=== PATIENT | female | born 1950 | race Caucasian/White ===

== ENCOUNTER 2021-06-16 05:28 | Day surgery (SDC) | payer MEDICARE, SELFPAY ==
--- NOTE | 2021-06-12 14:02 | EKG12_ITS ---
Test Reason : OP EKG Blood Pressure : / mmHG Vent. Rate : 074 BPM Atrial Rate : 074 BPM P-R Int : 186 ms QRS Dur : 080 ms QT Int : 372 ms P-R-T Axes : 006 -04 039 degrees QTc Int : 412 ms Normal sinus rhythm Normal ECG Confirmed by AUBREY KHALIL, GAURAV ([id number]), dictionary editor SHEBA KATZ ([id number]) on 06/13/2021 9:15:38 AM Referred By: Timothy Ashton Confirmed By:BRET BURGOS MD
[2021-06-12 16:05] LABS: Hematocrit 38.9 % (37-47); Hemoglobin 13.2 g/dL (12.0-15.0); Mean Corp Hgb Conc 33.9 g/dL (32-36); Mean Corpuscular Hgb 28.4 pg (27.0-32.0); Mean Corpuscular Volume 83.8 fL (81-99); Mean Platelet Vol. 10.2 fl (6.2-12.0); Platelet Count 134 K/mm3 (150-450); RBC Distribution Width CV 14.7 % (11.6-14.6); RBC Distribution Width SD 44.7 fl (35.1-43.9); Red Blood Count 4.64 M/mm3 (4.2-5.4); White Blood Count 6.9 K/mm3 (4.4-11.0)
[2021-06-12 16:21] LABS: International Normalized Ratio 1.1; Prothrombin Time (Protime)PT. 13.6 SECONDS (11.7-14.9)
[2021-06-12 16:22] LABS: Partial Thromboplast Time 35.4 Seconds (24.1-36.2)
[2021-06-12 16:36] LABS: AST(SGOT) 23 U/L (15-37); Alanine Aminotransfer ALT/SGPT 23 U/L (13-56); Albumin, Serum 3.9 g/dL (3.2-5.0); Alkaline Phosphatase 82 U/L (45-117); Bilirubin, Direct 0.19 mg/dL (0.00-0.30); Globulin 4.1 g/dL (2.2-4.2); Magnesium 2.3 mg/dL (1.6-2.6)
[2021-06-12 16:39] LABS: AST(SGOT) 20 U/L (15-37); Alanine Aminotransfer ALT/SGPT 24 U/L (13-56); Alkaline Phosphatase 82 U/L (45-117); Anion Gap 8 (5-15); BUN 16 mg/dL (7-18); BUN/Creat Ratio 21.9 RATIO (10-20); Calcium,Total 9.3 mg/dL (8.5-10.1); Chloride 103 mmol/L (98-107); Creatinine, Serum 0.73 mg/dL (0.55-1.02); EST Glomerular Filtration Rate 84 mL/min (>60); Est Glom Filt Rate - Afr Amer 102 mL/min (>60); Globulin 4.1 g/dL (2.2-4.2); Glucose 77 mg/dL (74-106); Potassium 4.1 mmol/L (3.5-5.1); Protein, Total 8.1 g/dL (6.4-8.2); Sodium Level 138 mmol/L (136-145)
--- NOTE | 2021-06-14 12:38 | PCM.HP.BLA ---
History and Physical Date of Admission: 06/16/21 Surgical History and Physical Ella Tavera, a 71 year old female 2 0 0 0 2, presents for Vaginal Hysterectomy and AP Repair on June 16, 2021 at 10 :00. -- Symptomatic Prolapse -- Pt with bladder prolapse. Sx's started 1 years ago. Main sx's are pressure and dysuria. Increased sx's started after falling at work 07/2020. Pt is and not sexually active. Adds she has rare episodes of having to move around to be able to release her bladder, as she can always go, but not all at one time. Admits she had tried the Estrogen cream as directed, but does not seem to help. Prolapsed bladder x 2 years. Ella claims it started gradually and has been present 1 year prolapse. It occurs all the time. It is located in the vagina. Ella characterizes the quality pressure and urinary retention w/prolapse. Severity is moderate and not improving; MEDICATIONS HISTORY: Current medications prescribed by our practice are: 1. Premarin 0.625 mg/gram cream, Apply once weekly x 2 weeks, then twice weekly there after Patient is also takin. Flonase Allergy Relief 50 mcg/actuation nasal spray,suspension, PRN 2. omeprazole 40 mg capsule,delayed release, 1 PO QD 3. trazodone 50 mg tablet, 1 PO QD 4. cyclobenzaprine 10 mg tablet, 1 PO QD prn ALLERGIES: Streptomycin, Muscle stiffness Infections - chicken pox, mumps, measles, pnuemonia Illnesses - diverticulitis Accidents - None Hospitalizations - see surgery Review of Systems: GENERAL - Denies fever, or chills SKIN - Denies skin changes EYES - Denies visual changes EARS - Denies difficulty hearing NOSE - Denies nasal congestion or bleeding MOUTH - Denies sore throat or difficulty swallowing NECK - Denies pain or swelling RESPIRATORY - Denies shortness of breath or wheezing CARDIOVASCULAR - Denies palpitations or chest pain GASTROINTESTINAL - Denies nausea, vomiting, diarrhea, constipation GENITOURINARY - Denies dysuria, frequency of urination, incontinence of urine MUSCULOSKELETAL - Denies joint or muscle pain NEUROLOGICAL - Denies localized numbness or weakness PSYCHIATRIC - Denies depression or anxiety ENDOCRINE - Denies heat or cold intolerance, weight loss or gain HEMATO-IMMUNOLOGIC - Denies excesive bleeding with cuts SOCIAL HISTORY: Alcohol Use - denies drinking Smoking - denies smoking Diet - balanced diet Lifestyle - Exercise - regular Seat Belt Use - always Employer - [employer] Job Description - sales associate cashier Illicit Drug Use - denies use of street drugs Sexual Activity - Residence - owns a home Hours Worked - part-time Spouse-Sig Other Name - Children Name(s) - 2 children Control - postmenopausal FAMILY HISTORY: MENSTRUAL HISTORY: LMP Known?- Postmenopausal PAST PREGNANCIES: Total Pregnancies - 2; Full Term Pregnancies - 2; Premature - 0; Abortions, Induced - 0; Abortions, Spontaneous - 0; Ectopics - 0; Multiple Births - 0; Living Children - 2 SURGICAL HISTORY: 1. 04/24/1957 T+A 2. 01/10/1991 breast bx PHYSICAL EXAM BP- 140/82 Sitting, Right arm, regular cuff Weight- 156.63213 lbs Height- 66.50 inch BMI:[id number] CONSTITUTIONAL - NAD, well nourished, and well developed SKIN - No rash, lesions, or ulcers HEENT - Normocephalic, PERRLA, EOMI NECK - No nodes, no nuchal rigidity and thyroid normal size and texture LYMPH NODES - Palpation of lymph nodes in neck and groins within normal limits LUNGS - CTA x2 without wheezes, crackles or rales CARDIAC - Regular rate and rhythm without rubs, murmurs, or gallops BREAST - No dominant masses, no tenderness, no axillary adenopathy, no nipple discharge, no skin changes ABDOMEN - Without hepatosplenomegaly, distention, masses, rebound, or guarding; normal bowel sounds; no hernias EXTREMITIES - No edema or calf tenderness NEUROLOGICAL - Cranial nerves II-XII grossly intact PSYCHIATRIC - A and O to time, place, person, mood and affect External Genitial Vagina - non-tender without lesions and sebaceous cysts right labia Urethra/Urethral Meatus - non-tender Bladder - non-tender Vagina - loss of rugae and large cystocele 2 cm outside introitus; rectocele to introitus with open perineum Cervix - without cervical motion tenderness and has normal size and features without evident lesions and prolapses to within 2-3 cm of introitus with bearing down Uterus - 5-6 cm in size, mobile and nontender Adnexa - clear without massess or tenderness ASSESSMENT/PLAN: 1. Cystocele Midline and Uterovaginal Prolapse Incomplete Symptomatic. Discussed options for treatment including expectant management, pessary use or Vag Hyst with AP Repair. Wants to proceed with the surgery. Discussed RBAs and all questions answered.
[2021-06-16] VITALS (23 sets, daily range): BP systolic 93–140; BP diastolic 49–84; PULSE 56–82; RESP 14–16; TEMP 36.6–36.7; O2SAT 93–100; BMI 25.5
[2021-06-16] MEDS: Lactated Ringers 1,000 ML 40 ML IV (06:24)
[2021-06-16] MEDS: Acetaminophen 500 MG Tablet 1000 MG PO ×3 (06:25→18:59)
[2021-06-16] MEDS: Gabapentin 600 MG Tablet PO (06:25)
[2021-06-16 06:36] LABS: Bedside Glucose 107 mg/dL (70-110)
[2021-06-16] MEDS: Cefazolin 2 GM in 0.9% Normal Saline 100 ML IV (07:26)
--- NOTE | 2021-06-16 07:30 | HYST_PTH ---
PATIENT: LEO MESSER LOC: [facility] – [place] U#:[id number] AGE/SX: 71/F ROOM: RE06/16/[address]: Dr. Timothy Ashton MD : [id number] BED: DIS: 06/18/2021 SPEC #: [id number] RECD: 06/16/21 11:48 STATUS: EMERSON MACEDO #: [id number] LISA: 06/16/21 07:[address]: Timothy Ashton DEPT: SURGICAL PATHOLOGY RECD BY: Citlali Rice ENTERED: 06/16/21 12:49 SP TYPE: HYSTERECT OTHR DR: Out of [facility] Doctor Tissues: Uterus, NOS Procedures: Surgery Specimen Level V HEADER OPERATION: Vaginal hysterectomy, A & P repair PRE-OP DIAGNOSIS: Cystocele midline and uterovaginal prolapse TISSUE SUBMITTED: Uterus MICROSCOPIC DIAGNOSIS Uterus, hysterectomy: Cervix ? nabothian cysts and minimal chronic inflammation. Endometrial polyp ? simple cystic hyperplasia without atypia and changes of atrophy. Endometrium ?simple cystic hyperplasia and atrophic change. Myometrium ? leiomyomas and calcifications of vessel long. AM:billy 06/17/2021 COMMENT Case has been reviewed in consultation with Dr. Hanson who concurs with the above diagnosis. IDC:SJ MICROSCOPIC DESCRIPTION Slides are reviewed. GROSS DESCRIPTION Received in fixative is one container labeled with the patient's name and designated uterus. The specimen consists of a hysterectomy specimen consisting of uterus with cervix weighing 29 gm and measuring 7 x 3.5 x 2.5 cm. The serosal surface is ashley, glistening. The ectocervical mucosa is unremarkable. The external os is oval and patulous. The endocervical canal measures 2.5 cm in length and the endocervical mucosa is ashley, glistening and unremarkable. The endometrial cavity is saucer-shaped and filled with ashley mucoid material and measures 3 cm in length and 2 cm in diameter. A sessile polyp is noted measuring 1 x 0.5 cm. The myometrial wall underneath the polyp is not indurated. The rest of the endometrium measures <0.1 cm in thickness. Sections of the myometrial wall do not reveal any mass lesion and it measures 1 cm in thickness. Kit Planner sections are submitted in seven cassettes as follows: 1 - anterior cervix, 2 - posterior cervix, 3 & 4 - anterior uterine wall, 5 & 6 - posterior uterine wall, 7??endometrial polyp with underlying uterine wall, entirely submitted. / SJ:billy 06/16/21 TC:5 CPT: 59062
[2021-06-16] MEDS: Ondansetron 4 MG/2 ML Vial IV (09:47)
--- NOTE | 2021-06-16 09:54 | PCM.OPRPT ---
Report of Operation Date of Procedure: 06/16/21 Pre-Operative Diagnosis: Uterovaginal Prolapse, Cystocele, Rectocele Post-Operative Diagnosis: Uterovaginal Prolapse, Cystocele, Rectocele Surgery/Procedure Performed:: Vaginal Hysterectomy and Anterior Posterior Repair Surgeon: Timothy Ashton surgical product sales consultant: Philomena Veronica Type of Anesthesia: General (Endotracheal) Anesthesiologist: Aravind Houston Specimen's removed: Uterus and vaginal mucosa Drains: Chandra to straight drain Estimated Blood Loss (mL): 100 cc Fluids Replaced: Crystalloid Description of Procedure: Surgeon: Timothy Ashton MD, FACOG Indications: This is a 71-year-old who is been having problems with prolapse symptoms. She is noted to have a large cystocele present with some prolapse of the cervix. Conservative measures have not been helpful. Given this the patient desires that we proceed the above procedure. She has been counseled regarding the risk and indications of this procedure including the possibility of bleeding, infection, and injury to surrounding structures such as bowel bladder. All questions were answered. Procedure: Patient was taken to the operating room where after induction of general anesthesia she was placed in the dorsal lithotomy position and prepped and draped in the usual sterile fashion. A Chandra catheter was placed. Anterior cervix was grasped with a tenaculum and anterior cervix circumscribed with cautery on a setting of 35 W coagulation. Anterior vaginal mucosa was undermined and anterior peritoneum was easily entered. The posterior aspect of the cervix was circumscribed with a knife and posterior peritoneum easily entered. Progressive bites were taken on either side of the uterine cervix and each pedicle ligated with 0 Vicryl suture. Superior pedicles were ligated ?2 with 0 Vicryl suture and sidewall pedicles were examined and oversewn where necessary with [id number] 0 Vicryl suture to achieve hemostasis. Posterior vaginal cuff was oversewn with running locked 0 Vicryl suture. Hemostasis was noted and peritoneum was closed in a pursestring fashion incorporating superior pedicles into the stitch. Attention was turned toward the anterior repair portion of the procedure. Anterior vaginal mucosa was undermined and divided and then imbricated toward the midline with interrupted 0 Vicryl sutures. Vaginal mucosa was trimmed and then closed with interrupted 2-0 chromic suture. Vaginal cuff was then closed front to back with interrupted [id number] 0 Vicryl suture. Hemostasis was noted. Attention was turned toward the posterior repair portion of the procedure. Remnants of the hymenal ring were grasped with Allises and a V-shaped incision was made in the perineum. Rectovaginal mucosa was then undermined divided and then imbricated toward the midline with interrupted 0 Vicryl suture. Vaginal mucosa was trimmed and then closed with running locked 2-0 chromic suture. Remnants of the bulbocavernosus muscles were identified and brought toward the midline with a single [id number] 0 Vicryl suture and perineum was closed in the usual fashion with running and subcuticular, and [id number] 2-0 chromic suture. Hemostasis was noted. Chandra catheter was again opened and clear yellow urine was noted. Vagina was packed with iodoform tape. Patient tolerated the procedure well was taken to recovery room in satisfactory condition; sponge instrument and needle counts were all reportedly correct. Estimated blood loss for the case was 100 cc. Ancef 2 g IV was given prior to beginning the operative procedure. There were no apparent complications of the surgery. Grafts/Implants Used: None Complications None Admit VTE Documentation VTE Present on Admission: Yes VTE Mechan Device Prophylaxis: SCD's VTE Pharm Prophylaxis ordered?: Yes
--- NOTE | 2021-06-16 10:00 | PCM.DC ---
Discharge Instructions Diet Discharge Diet: No restrictions Activity Discharge Activity: May Shower and May Take a Tub Bath May resume sexual activity in: 6-8 weeks Lifting Restrictions: 25 pounds for 6 weeks Additional Activity Instructions:: Nothing in the vagina for 6 weeks please; no lifting more than 20-25 lbs for 6 weeks. Use Ibuprophen 800 mg orally every 8 hours as needed for pain. Can also add Tylenol 1000 mg every 8 hours if needed for pain. If Ibuprophen and Tylenol are not effective then use the Oxycodone but keep in mind it can cause serious constipation issues. Drink lots of water. Call if bleeding more than a pad per hour. Use the colace as constipation is a big issue after this type of surgery. Steps and walking are OK. Activity is encouraged but do not over do it !! Dressing / Incision Call your doctor if you observe: Fever of 101 or Higher, Inability to urinate and Inability to have a bowel movement Follow Up Care Please Follow Up With: Timothy Ashton MD When: 2 to 3 weeks Test Results: Test results from this visit will be discussed in further detail at your follow-up appointment, if applicable. Discharge Plan Admission Primary Reason for Your Visit: Prolapse Symptoms Attending Provider: Timothy Ashton Primary Care Provider: [facility] ,Out of Discharge Orders/Prescriptions Prescriptions: New docusate sodium 100 mg tablet 100 mg PO BID PRN (Reason: constipation) Qty: 60 RF: 1 Continued trazodone 50 mg tablet 50 mg PO QHS RF: 0 omeprazole 40 mg capsule,delayed release(DR/EC) 40 mg PO QODAY RF: 0 Multivitamin Women 50 Plus 8 mg iron-400 mcg-300 mcg Tablet 1 tab PO DAILY RF: 0 cyclobenzaprine 5 mg Tablet 5 mg PO QHS PRN (Reason: leg cramps) RF: 0 Magnesia Phosphorica 1 tab PO/SL Q10M PRN RF: 0 Other Ambulatory Orders: 12 Lead EKG (Routine) Timeframe: [id number] Location: None Selected Ordered By: Dr. Adán Bauer Referrals / Follow Up: [facility] ,Out of [Primary Care Provider] - Disposition Disposition (needs filled in before D/C Order can be placed): Home, Self Care
[2021-06-16] MEDS: Cefazolin 1 GM/50 ML BAG IV ×2 (15:01→21:49)
[2021-06-16] MEDS: Enoxaparin 40 MG/0.4 ML Syringe SC (18:59)
--- NOTE | 2021-06-16 20:41 | NURSING ---
Pandemic documentation initiated 06/16/21 @ 2042.
[2021-06-16] MEDS: cycloBENZAPRine HCl 5 MG TABLET PO (21:49)
[2021-06-16] MEDS: traZODone 50 MG Tablet PO (21:49)
[2021-06-16] MEDS: Docusate Sodium 100 MG Capsule PO (21:49)
[2021-06-17] MEDS: Acetaminophen 500 MG Tablet 1000 MG PO ×4 (00:26→19:24)
[2021-06-17 04:01] VITALS: BP 105/45; PULSE 53; RESP 16; TEMP 36.4; O2SAT 97
[2021-06-17 06:36] LABS: Hemoglobin 11.9 g/dL (12.0-15.0); Mean Corp Hgb Conc 32.2 g/dL (32-36); Mean Corpuscular Hgb 27.9 pg (27.0-32.0); Mean Corpuscular Volume 86.9 fL (81-99); Mean Platelet Vol. 10.1 fl (6.2-12.0); Platelet Count 133 K/mm3 (150-450); RBC Distribution Width CV 14.6 % (11.6-14.6); RBC Distribution Width SD 45.9 fl (35.1-43.9); Red Blood Count 4.26 M/mm3 (4.2-5.4); White Blood Count 8.8 K/mm3 (4.4-11.0)
[2021-06-17 06:56] LABS: Creatinine, Serum 0.81 mg/dL (0.55-1.02); EST Glomerular Filtration Rate 74 mL/min (>60); Est Glom Filt Rate - Afr Amer 90 mL/min (>60)
[2021-06-17 07:26] VITALS: BP 117/47; PULSE 45; RESP 14; TEMP 36.8; O2SAT 97
[2021-06-17] MEDS: Docusate Sodium 100 MG Capsule PO ×2 (07:33→21:41)
[2021-06-17 08:12] VITALS: O2SAT 98
--- NOTE | 2021-06-17 08:39 | PCM.PN.OB ---
Subjective Subjective Patient without complaints. Tolerating diet well. Minimal pain. No bleeding. Objective Data Objective Data Vaginal pack removed with minimal bleeding noted. Good urine output. Hemoglobin and creatinine stable. Vital Signs: Vital Signs Temp Pulse Resp BP Pulse Ox 98.2 F 45 L 14 117/47 L 98 06/17/21 07:26 06/17/21 07:26 06/17/21 07:26 06/17/21 07:26 06/17/21 08:12 Oxygen Flow Rate (L/min) 6 Oxygen Delivery Method Room Air Weight: 158 lb 8.198 oz Body Mass Index (BMI) 25.5 Intake & Output: Intake and Output for Last 24 Hours 06/15/21 06/16/21 06/17/21 23:59 23:59 23:59 Intake Total 1314.5 / 1314.5 700 / 700 Output Total 1610 / 1610 1950 / 1950 Balance -295.5 / -295.5 -1250 / -1250 Lab / Micro Data Result Diagrams: 06/17/21 06:16 06/17/21 06:16 Labs: Laboratory Results - last 24 hr 06/17/21 06:16: WBC 8.8, RBC 4.26, Hgb 11.9 L, Hct 37.0, MCV 86.9, MCH 27.9, MCHC 32.2 D, RDW Std Deviation 45.9 H, RDW Coeff of Nimesh 14.6, Plt Count 133 L, MPV 10.1 06/17/21 06:16: Creatinine 0.81, Estim Creat Clear Calc 60.50, Est GFR (MDRD) Af Amer 90, Est GFR (MDRD) Non-Af 74 Assessment & Plan (1) Prolapse of anterior vaginal wall: PLAN: Doing well postoperative day #1 status post vaginal hysterectomy and anterior posterior repair. Will discharge to home when able to void on own. Routine home-going instructions given.
[2021-06-17 12:00] VITALS: BP 111/52; PULSE 55; RESP 14; TEMP 36.9; O2SAT 100
[2021-06-17 15:34] VITALS: BP 141/52; PULSE 58; RESP 16; TEMP 36.8; O2SAT 100
[2021-06-17 21:15] VITALS: BP 133/61; PULSE 59; RESP 16; TEMP 36.6; O2SAT 99
[2021-06-17] MEDS: traZODone 50 MG Tablet PO (21:39)
[2021-06-18] MEDS: Acetaminophen 500 MG Tablet 1000 MG PO ×3 (00:12→15:53)
[2021-06-18 03:14] VITALS: BP 124/60; PULSE 60; RESP 16; TEMP 36.4; O2SAT 98
[2021-06-18 08:52] VITALS: BP 146/64; PULSE 76; RESP 18; TEMP 36.5; O2SAT 96
--- NOTE | 2021-06-18 09:09 | PCM.PN.OB ---
Subjective Subjective Patient without complaints except unable to void when Chandra discontinued. Declined going home with leg bag last evening. Chandra in place now. Discussed doing voiding trial today versus just going home with a leg bag and she elects to do a voiding trial today. Objective Data Objective Data Urine output okay. Had approximately 950 cc of urine when straight cathed and then unable to void and catheter reinserted during the night. Vital Signs: Vital Signs Temp Pulse Resp BP Pulse Ox 97.7 F L 76 18 146/64 H 96 06/18/21 08:52 06/18/21 08:52 06/18/21 08:52 06/18/21 08:52 06/18/21 08:52 Oxygen Flow Rate (L/min) 6 Oxygen Delivery Method Room Air Weight: 158 lb 8.198 oz Body Mass Index (BMI) 25.5 Intake & Output: Intake and Output for Last 24 Hours 06/16/21 06/17/21 06/18/21 23:59 23:59 23:59 Intake Total 1314.5 / 1314.5 1999 150 / 150 Output Total 1610 / 1610 4900 / 4900 1450 / 1450 Balance -295.5 / -295.5 -2900 / -2900 -1300 / -1300 Lab / Micro Data Result Diagrams: 06/17/21 06:16 06/17/21 06:16 Assessment & Plan (1) Prolapse of anterior vaginal wall: PLAN: Continues to do well but unable to void on own. Will discontinue Chandra catheter this morning and do another voiding trial. If unable to void will send patient home with leg bag later today. Will have patient discontinue leg bag on Wednesday early in the morning and if unable to void come to the office for Chandra catheter reinsertion. Will start on Macrobid until urinary retention issues have resolved.
[2021-06-18] MEDS: Enoxaparin 40 MG/0.4 ML Syringe SC (09:14)
[2021-06-18] MEDS: Docusate Sodium 100 MG Capsule PO ×2 (09:15→19:50)
[2021-06-18] MEDS: Pantoprazole Sodium 40 MG Tablet PO (09:15)
[2021-06-18] MEDS: Nitrofurantoin Macrocrystals 100 MG Capsule PO ×2 (10:08→19:50)
[2021-06-18 12:18] VITALS: BP 143/88; PULSE 65; RESP 18; TEMP 36; O2SAT 99
[2021-06-18] MEDS: Magnesium Chloride 64 MG Delay Rel.Tablet 128 MG PO (12:32)
--- NOTE | 2021-06-18 12:46 | PHA.DC.MC ---
Pharmacy Service has performed discharge medication reconciliation and counseling for this patient. 1. DOCUSATE 100MG PO BID PRN CONSTIPATION The patient's discharge medication list was reviewed for discrepancies and discrepancies were resolved. Home Medications Magnesia Phosphorica 1 tab PO/SL Q10M PRN 06/10/21 Multivitamin Women 50 Plus 1 tab PO DAILY 06/10/21 cyclobenzaprine 5 mg PO QHS PRN 06/10/21 omeprazole 40 mg PO QODAY 06/10/21 trazodone 50 mg PO QHS 06/10/21 docusate sodium 100 mg PO BID PRN #60 tab 06/16/21 The patient was counseled on the following discharge medications and changes in medications for homegoing were reviewed. The Reason for Use, instructions for use, and potential side effects were reviewed for all new medications. The patient's questions regarding all of their medications were answered. The patient was able to verbally demonstrate an understanding of their discharge medications.
--- NOTE | 2021-06-18 14:22 | NURSING ---
into pt's room to explain orders from Dr. Ashton. pt anxious. pt called daughter to update her on plan including discharge with choi. pt and daughter both asking if would be agreeable to try something for anxiety or a muscle relaxer to assist with her being able to relax to void on her own. pt verbalizing concern about going home with choi and concern of having a choi placed again after having it before. talked with Karen at Dr. Ashton's office requesting Dr. Ashton call this nurse at [phone]
--- NOTE | 2021-06-18 14:57 | NURSING ---
pt informed of conversation with Dr. kaur including order for ativan. pt verbalized she is familiar with Ativan and has had it before. pt agreeable to plan to continue to attempt to void as well.
[2021-06-18] MEDS: LORazepam 0.5 MG Tablet 0.25 MG PO (15:10)
[2021-06-18 17:29] VITALS: BP 154/67; PULSE 60; RESP 18; TEMP 36.1; O2SAT 100
--- NOTE | 2021-06-18 17:33 | NURSING ---
pt up to bathroom void 200cc. c/o continued abd discomfort. states feels bladder full. bladder scanned for 938ml. pt stated she's agreeable to choi if recommended by Dr. Ashton. pt verbalized frustration she doesn't feel she's emptying her bladder. emotional support given. paged.
== END 2021-06-18 20:47 | disposition home or self-care (01) ==
LOC: SDC 05:28 → AC 05:28 → ACINP 08:06 → MS3 11:43
PROVIDERS: Anesthesiology; Referring Provider Obstetrics & Gynecology; Visit Provider Obstetrics & Gynecology
PROC: (CPT 58260; principal; 2021-06-16 07:10)
DX: N81.2 Incomplete uterovaginal prolapse (principal); D25.9 Leiomyoma of uterus, unspecified
CPT/HCPCS: 00944; 58270; 36415; 80053; 80076; 82565; 82962; 83735; 85027; 85610; 85730; 86850; 86900; 86901; 88307; 93005; 99251; J7120; G0463; J2405

== ENCOUNTER → 2022-05-12 | Outpatient (CLI) | payer MEDICARE, SELFPAY ==
--- NOTE | 2022-05-12 13:40 | BI_ITS ---
MAMMOGRAPHY - BILATERAL DIAGNOSTIC REASON FOR EXAM: Female, 71 years old. Left breast lump. PERTINENT HISTORY: Non-contributory. Remote bilateral stereotactic breast biopsy. TECHNIQUE: Digital bilateral breast jerry (3D mammographic acquisition) in the CC and MLO projections. 2-D mediolateral oblique (MLO) and craniocaudad (CC) views of both breasts were obtained. CAD: Full Field Digital Mammography with Computer Added Detection was performed. COMPARISON: Comparison is made with prior outside examination dated 09/07/2019. FINDINGS: Breast Composition: There are scattered areas of fibroglandular density. There are no dominant masses or suspicious calcifications. A tissue clip marker is seen in the slightly upper lateral aspect of the right breast. No other significant abnormalities are identified. There has been no significant change since the prior study. BI/DIAG MAMM W/CAD, BILAT IMPRESSION: Stable bilateral diagnostic mammogram. With the patient''s history of a palpable lump in the left breast, targeted sonographic evaluation is recommended. ASSESSMENT CATEGORY: BIRADS Category 0: Incomplete. Need additional imaging evaluation. A letter regarding these results will be sent to the patient by the facility within 30 days. Approximately 10% of breast cancers are not detected by mammography. A normal mammogram should not delay biopsy of a clinically suspicious abnormality. Electronically Signed: Chris Harry MD at 8:27 EDT ,
--- NOTE | 2022-05-12 13:40 | US_ITS ---
STUDY: ULTRASOUND BREAST - LEFT REASON FOR EXAM: Female, 71 years old. Thickening of the lateral aspect of the breast. TECHNIQUE: Axial and longitudinal images of the LEFT breast were performed with a high resolution ultrasound transducer. # OF IMAGES: 31 COMPARISON: Comparison is made with prior mammogram from earlier today. FINDINGS: LEFT Breast: The lateral aspect of the left breast was examined with ultrasound. There is homogeneous fibroglandular tissue. No sonographic abnormality is seen. . US/Breast Limited Unilateral IMPRESSION: No sonographic abnormality is seen. ASSESSMENT CATEGORY: BIRADS Category 1: Negative. A letter regarding these results will be sent to the patient by the facility within 30 days. Electronically Signed: Chris Harry MD at 15:24 EDT ,
== END | disposition home or self-care (01) ==
PROVIDERS: PCP Orthopaedic Surgery; Visit Provider Obstetrics & Gynecology
DX: N63.20 Unspecified lump in the left breast, unspecified quadrant (principal); R92.8 Other abnormal and inconclusive findings on diagnostic imaging of breast
CPT/HCPCS: 76642; 77062; 77066; G0279

== ENCOUNTER → 2024-12-05 | Outpatient (CLI) | payer MEDICARE, SELFPAY ==
--- NOTE | 2024-12-05 09:28 | BI_ITS ---
PROCEDURE: SCRN MAMM (CAD)W/DUNCAN BILAT REASON FOR EXAM: F, Age 74 y/o, presents for annual screening mammogram. TECHNIQUE: Bilateral screening digital breast tomosynthesis with 2D and 3D images. Computer aided detection. COMPARISON: No priors available. FINDINGS: There are scattered areas of fibroglandular density. No suspicious masses, areas of developing architectural distortion, or suspicious calcifications. BI/SCRN MAMM (CAD)W/DUNCAN BILAT IMPRESSION: There is no evidence of malignancy in either breast. BI-RADS 1: NEGATIVE. RECOMMEND ANNUAL MAMMOGRAPHIC SCREENING. Follow-up code: Routine Follow-up The patient will be notified of the results by letter. Reading Location: [id number]
== END | disposition home or self-care (01) ==
LOC: OPBI 09:26
PROVIDERS: PCP Family Medicine; Referring Provider Family Medicine; Visit Provider Family Medicine
DX: Z12.31 Encounter for screening mammogram for malignant neoplasm of breast (principal)
CPT/HCPCS: 77063; 77067

== ENCOUNTER → 2024-12-12 | Outpatient (CLI) | payer MEDICARE, SELFPAY ==
--- NOTE | 2024-12-12 13:59 | US_ITS ---
PROCEDURE: BREAST LIMITED UNILATERAL REASON FOR EXAM: Abnormal screening mammogram. COMPARISON: Comparison is made with prior mammogram dated December 05, 2024. TECHNIQUE: The lateral midportion of the left breast was examined with ultrasound. There are 2 small adjacent cysts at the 3 o'clock position of the breast at 2 cm from the nipple. The larger measures 3 mm x 5 mm x 3 mm. FINDINGS: LEFT: Ultrasound targeted to the lateral aspect at the left breast. The breast tissue appears sonographically normal. 3 mm x 5 mm x 3 mm cyst at the 3 o'clock position of the breast at 2 cm from the nipple. US/Breast Limited Unilateral IMPRESSION: Mammographic findings correspond to small cysts as described. BI-RADS 2: BENIGN. RECOMMEND ANNUAL MAMMOGRAPHIC SCREENING. [facility]
== END | disposition home or self-care (01) ==
PROVIDERS: PCP Family Medicine; Referring Provider Family Medicine; Visit Provider Family Medicine
DX: R92.8 Other abnormal and inconclusive findings on diagnostic imaging of breast (principal)
CPT/HCPCS: 76642